=== PATIENT | female | born 1965 | race Caucasian/White ===

== ENCOUNTER 2016-09-23 13:58 | Emergency (ER) | payer OTHER | END 2016-09-23 15:10 | disposition home or self-care (01) | LOC: ER 13:58 | DX: H60.93 Unspecified otitis externa, bilateral (principal); H72.93 Unspecified perforation of tympanic membrane, bilateral; H92.03 Otalgia, bilateral; F17.210 Nicotine dependence, cigarettes, uncomplicated; Z88.0 Allergy status to penicillin; Z79.899 Other long term (current) drug therapy | CPT/HCPCS: 99282 ==